=== PATIENT | male | born 1945 | race Caucasian/White ===

== ENCOUNTER → 2023-09-28 17:29 | Outpatient (REF) | payer MEDICARE, OTHER, SELFPAY | LOC: MRI 17:29 | PROVIDERS: ATTENDING PHYSICIAN Physician Assistant Medical; FAMILY PHYSICIAN Family Medicine | DX: M48.062 Spinal stenosis, lumbar region with neurogenic claudication (principal) | CPT/HCPCS: 72148 ==

== ENCOUNTER 2023-09-29 17:38 | Observation (INO) | payer MEDICARE, OTHER, SELFPAY ==
[2023-09-29] VITALS (10 sets, daily range): BP systolic 124–158; BP diastolic 68–96; BMI 36.8
[2023-09-29] MEDS: DILAUDID 0.5 MG IM (15:54)
--- NOTE | 2023-09-29 16:02 | CM ---
ED CM consulted for SNF placement
SNF recommended by PT
Pt and spouse reside at [facility] in an apartment with elevator
Pt noted to be typically independent with ADLs with use of WW
Occasionally will take motorized scooter for longer distances in the [facility]
Pt current out outpt PT at his [facility] through [facility] (spelling?)
Pt aide services a few horus aily provided through the [facility] [employer]
PCP- Yobani Rodas
Rx- ADELA MontejoNiecy
Pt requesting SNF at [facility]
Call with admissions/Nanci P [phone]
Pt is not interested in another SNF if no bed at [facility]
Bed available tomorrow at SNF
Private pay rate of $495 and pt in agreement
Update to physician
CM to coordinate dc to SNF tomorrow with [facility] admissions/Nanci P [phone]
[facility] tomorrow private pay
[2023-09-29 17:14] LABS: % Basophils 0.6 % (0-2); % Eosinophils 1.6 % (0-6); % Immature Granulocytes 0.7 % (0-0.5); % Lymphocytes 29.5 % (20.5-51.1); % Monocytes 6.5 % (1.7-9.3); % Neutrophils 61.1 % (42.2-75.2); Absolute Eosinophils 0.1 10^3/uL (0-0.7); Absolute Immature Granulocytes 0.1 10^3/uL (0-0.05); Absolute Lymphocytes 2.1 10^3/uL (1.2-3.4); Absolute Monocytes 0.5 10^3/uL (0.1-0.6); Absolute Neutrophils 4.3 10^3/uL (1.4-6.5); Hematocrit 37.1 % (39.0-52.0); Mean Corpuscular Hgb 33.5 pg (27.0-31.0); Mean Corpuscular Volume 95.6 fL (80.0-94.0); Nucleated Red Blood Cells % 0 % (-); Platelet Count 163 10^3/uL (130-400); Red Blood Cell Count 3.88 10^6/uL (4.70-6.10); Red Cell Dist. Width 12.6 % (11.5-14.5)
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
[2023-09-29 17:57] LABS: ALT (SGPT) 18 U/L (0-50); AST (SGOT) 29 U/L (17-59); Albumin 3.5 g/dl (3.5-5.0); Alkaline Phosphatase 53 U/L (38-126); Blood Urea Nitrogen 26 mg/dl (9-20); Calcium 8.7 mg/dl (8.4-10.2); Carbon Dioxide 31 mmol/L (22-30); Chloride 100 mmol/L (98-107); Glucose 150 mg/dl (70-99); Potassium 4.6 mmol/L (3.5-5.1); Sodium 135 mmol/L (135-145); Total Bilirubin 0.8 mg/dl (0.2-1.3); Total Protein 6.7 g/dl (6.3-8.2); eGFR > 60.00
[2023-09-29] MEDS: HEPARIN 5000 UNITS SC (20:16)
[2023-09-29] MEDS: VITAMIN D3 (cholecalciferol) 50 MCG PO (21:48)
[2023-09-29] MEDS: LYRICA 200 MG PO (21:48)
[2023-09-29] MEDS: KLONOPIN 0.5 MG PO (21:49)
[2023-09-29] MEDS: GLUCOPHAGE 500 MG PO (21:49)
[2023-09-29 21:50] LABS: Glucose - Point of Care 207 mg/dl (70-99)
[2023-09-29] MEDS: PERCOCET 5/325 1 TABLET PO (22:05)
[2023-09-30] MEDS: PERCOCET 5/325 1 TABLET PO ×2 (05:39→11:58)
[2023-09-30 07:24] VITALS: BP 132/93
[2023-09-30] MEDS: LIORESAL 10 MG PO ×2 (08:01→11:58)
[2023-09-30] MEDS: LYRICA 200 MG PO (08:02)
[2023-09-30] MEDS: VITAMIN D3 (cholecalciferol) 50 MCG PO (08:02)
[2023-09-30] MEDS: KLONOPIN 0.5 MG PO (08:02)
[2023-09-30] MEDS: GLUCOPHAGE 500 MG PO (08:02)
[2023-09-30] MEDS: HEPARIN 5000 UNITS SC (08:03)
[2023-09-30 08:04] LABS: % Basophils 0.6 % (0-2); % Eosinophils 2.4 % (0-6); % Immature Granulocytes 0.8 % (0-0.5); % Lymphocytes 30.6 % (20.5-51.1); % Monocytes 7.1 % (1.7-9.3); % Neutrophils 58.5 % (42.2-75.2); Absolute Basophils 0.1 10^3/uL (0-0.2); Absolute Eosinophils 0.2 10^3/uL (0-0.7); Absolute Immature Granulocytes 0.1 10^3/uL (0-0.05); Absolute Lymphocytes 2.4 10^3/uL (1.2-3.4); Absolute Monocytes 0.6 10^3/uL (0.1-0.6); Absolute Neutrophils 4.6 10^3/uL (1.4-6.5); Hematocrit 38.5 % (39.0-52.0); Hemoglobin 13.2 g/dL (13.0-18.0); Mean Corp Hgb Conc. 34.3 g/dL (33.0-37.0); Mean Corpuscular Hgb 33.8 pg (27.0-31.0); Mean Corpuscular Volume 98.7 fL (80.0-94.0); Mean Platelet Volume 10.5 fL (7.4-10.4); Nucleated Red Blood Cells % 0 % (-); Platelet Count 161 10^3/uL (130-400); Red Cell Dist. Width 12.5 % (11.5-14.5); White Blood Cell Count 7.9 10^3/uL (4.8-10.8)
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
[2023-09-30 09:58] LABS: ALT (SGPT) 18 U/L (0-50); AST (SGOT) 25 U/L (17-59); Albumin 3.4 g/dl (3.5-5.0); Alkaline Phosphatase 65 U/L (38-126); Blood Urea Nitrogen 21 mg/dl (9-20); Calcium 8.9 mg/dl (8.4-10.2); Carbon Dioxide 31 mmol/L (22-30); Chloride 99 mmol/L (98-107); Estimated Creatinine Clearance 116 ml/min; Glucose 145 mg/dl (70-99); Potassium 4.2 mmol/L (3.5-5.1); Sodium 136 mmol/L (135-145); Total Bilirubin 0.7 mg/dl (0.2-1.3); Total Protein 6.5 g/dl (6.3-8.2); eGFR > 60.00
--- NOTE | 2023-09-30 11:27 | CM ---
Spoke with Nanci at [facility] . Bed available today.Pt is private pay.
Spoke with patient and Cate [phone] both agree with dc. Pt is max assist of 2 and has pain. Ambulance requested.
Medical nec for completed.MAx assist of 2 and pain.
MD notified if pt dc with controlled substances a paper script needs to be sent with patient.
Referral sent to T .
Sigifredo Griffin
report before 3pm [phone]
after 3 pm [phone]
fax [phone]
PLAN To [facility] via ambulance
--- NOTE | 2023-09-30 12:16 | W.DCSUMMARY ---
Discharge Summary
Discharge Data
Date of Admission: 09/29/23
Date of Discharge: 09/30/23
-
Pending Results: No
Hospital Course
Patient 78 years old male history of prior spinal cord injury, chronic , anxiety, constipation, presented to the hospital with acute on chronic back pain. He follows up with pain specialist as outpatient and had recurrent spine injections and had
developed after last injection a couple weeks ago. No radiation of pain into his legs. MRI of the lumbar spine show evidence significant spinal stenosis. He was placed on pain medication and his pain has been better as well as bowel regimen. He
is going to alf facility today. Will have him follow-up with his pain specialist as outpatient. No other events were noticed.
Discharge Plan
-
Patient Disposition: Retirement/SNF
Discharge Diagnosis/Procedures: Acute on chronic back pain. Lumbar spinal stenosis.
Diet: Low Cholesterol
Activity: As tolerated
Driving Restrictions: As prior to admission
Blood Work: Please PCP to order CBC, BMP within 1 week
Referrals:
Yobani Rodas MD [Family Provider] - in less than 1 week
Prescriptions:
New
lidocaine 4 % Adhesive Patch,Medicated
1 patch topical DAILY@1999 14 Days Qty: 14 0RF
sennosides-docusate sodium 8.6-50 mg capsule
1 tab-cap PO BID Qty: 20 0RF
Continued
metformin 500 mg tablet
500 mg PO BID
Rx Instructions:
after meals
baclofen 10 mg Tablet
10 mg PO MEALS
bisacodyl [Dulcolax (bisacodyl)] 10 mg Suppository
10 mg MT DAILY
simvastatin 20 mg tablet
20 mg PO DAILY@2099
bisacodyl 5 mg Tablet
10 mg PO DAILY@2099
alfuzosin 10 mg Tablet Extended Release 24 Hr
10 mg PO QPM
pregabalin 200 mg Capsule
200 mg PO BID
Patient Comments:
09/29/2023: last filled 09/09/23, 60 tabs for 30 days from [facility]
cholecalciferol (vitamin D3) [Vitamin D3] 25 mcg (1,000 unit) Tablet
50 mcg PO BID
clonazepam 0.5 mg tablet
0.5 mg PO BID Qty: 4 0RF
Patient Comments:
09/29/2023: last filled 09/21/23, 180 tabs for 90 days from [id number]
oxycodone-acetaminophen 5-325 mg tablet
1 tab PO QID@06,12,18,23 Qty: 4 0RF
Patient Comments:
09/29/2023: last filled 08/30/23, 120 tabs for 30 days from [id number]
Discharge Orders:
Discharge Patient (As Directed); Ordered 09/30/23
Ordered By: Marco Grace
Discharge Date and Time
Discharge Date/Time: 09/30/23 17:58
[2023-09-30] MEDS: DILAUDID 0.5 MG IV (13:43)
[2023-09-30 15:55] VITALS: BP 131/68
--- NOTE | 2023-09-30 16:44 | PTCARENOTE ---
called Sigifredo Burnett for report and had to leave a message. # [phone]
[2023-09-30 17:23] VITALS: BP 131/67
[2023-10-01 21:15] LABS: Hepatitis C Antibody Negative (Negative)
--- NOTE | 2023-10-22 20:58 | ED.GENMED ---
History of Present Illness
General
Chief Complaint: Back Pain
Source: patient
Exam Limitations: none
Time Seen by Provider: 09/29/23 13:07
Nursing documentation reviewed up to this point in time: agreed with
Travel History
Have you had any contact with someone who has COVID-19?: No
Do you have any symptoms of coronavirus? Fever > 100 degrees, chills, cough, shortness of breath, sore throat, loss of taste or smell, muscle aches, or headache?: No
History of Present Illness
History of Present Illness:
78-year-old male presents emergency department due to left low back pain. He is unable to walk. He gets periodic spinal steroid injections, last injection on September 17. Chronic urinary incontinence.
Past History
Past History
ED Past Medical History: NIDDM and Other (Urinary retention)
Social History
Tobacco: Former smoker
Alcohol: None
Drug: None
Review of Systems
Review of Systems
Allergies reviewed?: Yes
All Other Systems: Not applicable
Constitutional: Reports no symptoms
EENT: Reports no symptoms
Respiratory: Reports no symptoms
Cardiac: Reports no symptoms
ABD/GI: Reports no symptoms
: Reports no symptoms
Musculoskeletal: Reports back pain
Skin: Reports no symptoms
Neurological: Reports no symptoms
Endocrine: Reports no symptoms
Hematologic/Lymphatic: Reports no symptoms
Psychiatric: Reports no symptoms
Phy Exam
Physical Exam
Physical Exam:
Physical Exam
General: Appears uncomfortable
Neck: supple. no meningeal signs. normal posterior pharynx
Heart: s1/s2 regular rate and rhythm, no murmur. equal radial
pulses.
HEENT: Pupils equal round reactive to light, EOMI
Lungs: no acute respiratory distress. clear bilaterally
Abdomen: normal bowel sounds. not tender. no CVAT
Neuro: alert and oriented. no focal neurological deficits cranial nerves II through XII intact
Skin: no rash
Psychiatric: well kept. interactive and cooperative
Extremities: no edema. no calf tenderness. negative homans. good distal pulses
Course
Orders/Labs/Results
Orders:
Orders
09/29/23 14:21
Case Management Consult ONCE
Case Management Consult: Discharge Planning
Comment: possible rehab placement
09/29/23 Dinner
Regular
At Your Request: Full Participation
Does patient need a safe tray?: No
09/29/23 15:01
Physical Therapy Consult [Pt Eval And Treat] Urgent
Activity Level: With Assistance
09/29/23 15:35
HYDROmorphone [Dilaudid] 0.5 mg IM NOW STA
09/29/23 17:04
Complete Blood Count/With Diff Urgent
09/29/23 17:25
Admit/Transfer Patient As Directed
Co-Sign Provider:
Level of Care: Observation services
Assign to:: Medical/Surgical
Physician / Group: [email or web address]
Diagnosis: lower back pain
09/29/23 17:26
Code Status As Directed
Resuscitation Status: Do not resuscitate
Reached after discussion with pt or family/Healthcare POA: Yes
DNR Bracelet Application ONCE
09/29/23 17:27
HYDROmorphone [Dilaudid] 0.5 mg IV Q6HPRN PRN
09/29/23 17:30
Lidocaine [Lidocaine 4% Patch] 1 patch TOPICAL DAILY
09/29/23 17:34
Comprehensive Metabolic Panel Urgent
09/29/23 18:46
Activity As Directed
Activity Level: As Tolerated
Vital Signs As Directed
Frequency: Per unit guidelines
Ot Eval And Treat Routine
DX Deep Vein Thrombosis Video Routine
09/29/23 20:00
Heparin 5,000 units SC Q12
09/30/23 06:44
Complete Blood Count/With Diff IN AM
Comprehensive Metabolic Panel IN AM
Abnormal Lab Results
09/29/23 09/29/23
17:04 17:34
RBC 3.88 L 10^6/uL
(4.70-6.10)
Hct 37.1 L %
(39.0-52.0)
MCV 95.6 H fL
(80.0-94.0)
MCH 33.5 H pg
(27.0-31.0)
Abs Immat Gran (auto) 0.1 H 10^3/uL
(0-0.05)
Immature Gran % 0.7 H %
(0-0.5)
Carbon Dioxide 31 H mmol/L
(22-30)
BUN 26 H mg/dl
(9-20)
Creatinine 0.4 L mg/dL
(0.7-1.3)
Glucose 150 H mg/dl
(70-99)
09/29/23 17:04
09/29/23 17:34
Vital Signs
Initial and Last Documented VS:
Initial Vital Signs
Temp Pulse Resp BP Pulse Ox
99.0 F 86 18 158/96 95
09/29/23 10:43 09/29/23 10:43 09/29/23 10:43 09/29/23 10:43 09/29/23 10:43
Last Documented Vital Signs
Temp Pulse Resp BP Pulse Ox
99.3 F 76 18 131/67 93
09/30/23 17:23 09/30/23 17:23 09/30/23 17:23 09/30/23 17:23 09/30/23 17:23
MDM/Problems Addressed
Differential Diagnosis Includes:
Spinal stenosis, cauda equina
MDM/Problems Addressed:
78-year-old male with amatory dysfunction, acute on chronic back pain secondary to spinal stenosis.
Chronic conditions affecting care: Other (Lumbar spinal stenosis)
Acute Exacerbation and/or Progression of Chronic Illness: Other (Lumbar spinal stenosis)
*Pulse Oximetry
Patient hypoxic: no
*EKG
Interpreted by ED Provider?: NA
*Communications Manager Interpretation
Rate: Communications Manager- N/A
*Critical Care Note
Total Time (30-74mins, 75-104mins- exclusive of procedures): Not Applicable
Data Reviewed
Further Testing Considered But Not Given:
MRI not indicated
Patient Management
Social determinants of health affecting care: Living situation
Discussion with other providers: Hospitalist
Escalation/DeEscalation of care consider admission/obs:
Admit indicated, unsafe discharge
ED Attending Note
-
Portions of this chart may have been created with voice recognition software.� Occasional wrong word or��sound alike� substitutions may have occurred due to the inherent limitations of voice recognition software.
Discharge Plan
Departure
Patient Disposition: Admit
Date of Disposition: 09/29/23
Time of Disposition: 16:49
Admit to: Med/Surg
Presentation/result/management discussed w/ accepting MD/DO: Hospitalist
Patient with high blood pressure during this ER visit?: Yes
Condition: Fair
Discharge Problem:
Ambulatory dysfunction, Low back pain
Interventions
Interventions:
*Risk Screen - Suicide Last Done: 09/29/23 13:56
*General Assessment Last Done: 09/29/23 13:56
*Neglect/Abuse Screening Last Done: 09/29/23 13:56
ED- Fall Risk Assessment Last Done: 09/29/23 18:49
*ED COVID-19 Vaccine History Last Done: 09/29/23 19:44
*Nursing Disposition Last Done: 09/29/23 18:49
ED-Musculoskeletal Assessment Last Done: 09/29/23 13:56
Discharge Date and Time
Discharge Date/Time: 09/29/23 18:50
== END 2023-09-30 17:58 ==
LOC: 4 EAST ACU 17:38
PROVIDERS: ADMITTING PHYSICIAN Hospitalist; ATTENDING PHYSICIAN Hospitalist; EMERGENCY PHYSICIAN Emergency Medicine; FAMILY PHYSICIAN Family Medicine
DX: G89.29 Other chronic pain (principal); M54.9 Dorsalgia, unspecified; M48.061 Spinal stenosis, lumbar region without neurogenic claudication; M54.59 Other low back pain; R73.03 Prediabetes; E78.5 Hyperlipidemia, unspecified; K59.09 Other constipation; F32.A Depression, unspecified; F41.9 Anxiety disorder, unspecified; R33.9 Retention of urine, unspecified; T14.8XXS Other injury of unspecified body region, sequela; Y93.18 Activity, surfing, windsurfing and boogie boarding; R53.1 Weakness; Z79.891 Long term (current) use of opiate analgesic; Z87.891 Personal history of nicotine dependence; Z88.2 Allergy status to sulfonamides; Z79.84 Long term (current) use of oral hypoglycemic drugs; Z66 Do not resuscitate
CPT/HCPCS: 80053; 82962; 85025; 86803; 87070; 96372; 99285; G0378